=== PATIENT | female | born 1955 | race Caucasian/White ===

== ENCOUNTER 2017-08-06 09:08 | Emergency (ER) | payer BC ==
[2017-08-06] MEDS ORDERED: Ketorolac INJ* 30 MG/ML 1 ML VIAL IM ONE (09:53)
[2017-08-06] MEDS ORDERED: Diazepam TAB(*) 5 MG PO ONE (09:53)
[2017-08-06] MEDS ORDERED: Ondansetron ODT TAB* 4 MG PO ONE (11:30)
[2017-08-06] MEDS ORDERED: Morphine VIAL* 10 MG/ML 1 ML VIAL IM ONE (11:30)
[2017-08-06] MEDS ORDERED: Morphine VIAL* 4 MG/ML VIAL (1 ml vial) IV ONE (11:42)
--- NOTE | 2017-08-06 12:34 | RAD ---
Indication: Right hip pain. Single view the pelvis and 2 views of the right hip demonstrates no fracture. Pelvic ring is intact. Joint spaces well-preserved. The right sacroiliac joint is also intact. IMPRESSION: No fracture of the right hip or pelvis is noted.
--- NOTE | 2017-08-06 12:42 | RAD ---
Indication: Back pain. 5 views of lumbar spine are reviewed. There is posterior fusion of L5 L4 to L5. Straightening of the normal lordosis is noted. Disc spaces are intact. IMPRESSION: Postoperative changes at L4-L5. Straightening of the normal lordosis.
[2017-08-06 12:46] VITALS: BP 143/71
--- NOTE | 2017-08-06 17:58 | ED ---
Back Pain - HPI Summary HPI Summary: Patient is a 61-year-old female who presents emergency department for low back pain times several days. Patient states she has a history of numerous back surgeries remotely. She states she was painting and moving furniture several days ago when she twisted and injured her back. She otherwise denies also. Pain is located to right lower back and radiates into right leg. Notes she has chronic neuropathy to legs but has noted some tingling to her right toe. She denies bowel or bladder incontinence or retention. Pain is worse with movement and ambulation. Nothing makes symptoms better. Patient states she had Soma at home which she took some relief. States she ran out of Soma prescription. Symptoms are mild in severity. - History of Current Complaint Chief Complaint: EDBackInjuryPain Stated Complaint: RT LEG PAIN/HIP PAIN Time Seen by Provider: 08/06/17 09:28 Hx Obtained From: Patient Pain Intensity: 3 Pain Scale Used: 0-10 Numeric - Allergies/Home Medications Allergies/Adverse Reactions: Allergies Allergy/AdvReac Type Severity Reaction Status Date / Time codeine Allergy Anxiety Verified 08/06/17 09:13 Home Medications: Home Medications Alendronate TAB (NF) [Fosamax TAB (NF)] 10 mg PO MONTHLY 08/06/17 [History Confirmed 08/06/17] Aspirin/Caffeine [Bc Fast Pain Relief Arthr 1000-65 mg] 1 pow PO DAILY 08/06/17 [History Confirmed 08/06/17] Gabapentin CAP(*) [Neurontin 300 CAP(*)] 1,200 mg PO TID 08/06/17 [History Confirmed 08/06/17] PMH/Surg Hx/FS Hx/Imm Hx Previously Healthy: Yes Musculoskeletal History: Reports: Hx Osteoporosis - SHOWN IN HIPS NOT LUMBAR - Cancer History Cancer Type, Location and Year: CERVICAL CA - Surgical History Surgery Procedure, Year, and Place: LUMBAR FUSION Infectious Disease History: Unable to Obtain/Confirm Infectious Disease History: Denies: Traveled Outside the [place] in Last 30 Days - Social History Occupation: Retired Lives: With Family Alcohol Use: Occasionally Substance Use Type: Reports: None Smoking Status (MU): Current Every Day Smoker Review of Systems Constitutional: Negative Positive: Other - radicular pain into right leg. Right low back pain. Positive: Paresthesia All Other Systems Reviewed And Are Negative: Yes Physical Exam Triage Information Reviewed: Yes Vital Signs On Initial Exam: Initial Vitals Temp Pulse Resp BP Pulse Ox 98.6 F 85 15 144/81 96 08/06/17 09:10 08/06/17 09:10 08/06/17 09:10 08/06/17 09:10 08/06/17 09:10 Vital Signs Reviewed: Yes Appearance: Positive: Pain Distress - Patient lying in bed, appears in pain but nontoxic. Has been present. Skin: Positive: Warm, Dry Head/Face: Positive: Normal Head/Face Inspection Eyes: Positive: Normal Musculoskeletal: Positive: Other - Pain on palpation over the right SI joint. No midline tenderness. 5 out of 5 strength in bilateral lower extremities flexion and dorsiflexion. Legs are neurovascularly intact. Decreased sensation to right great toe. Neurological: Positive: Normal, CN Intact II-III Psychiatric: Positive: Normal Diagnostics - Vital Signs Vital Signs Temp Pulse Resp BP Pulse Ox 08/06/17 13:05 98.6 F 68 18 143/71 96 08/06/17 12:35 68 143/71 96 08/06/17 12:05 68 153/81 96 08/06/17 12:00 70 96 08/06/17 11:45 22 08/06/17 11:36 69 167/51 98 08/06/17 11:33 65 157/80 98 08/06/17 11:00 70 99 08/06/17 10:05 65 159/68 98 08/06/17 10:02 18 08/06/17 10:00 73 98 08/06/17 09:36 77 100 08/06/17 09:35 74 158/84 100 08/06/17 09:10 98.6 F 85 15 144/81 96 - Laboratory Lab Statement: Any lab studies that have been ordered have been reviewed, and results considered in the medical decision making process. Back Pain Course/Dx - Course Course Of Treatment: Patient presenting with exacerbation of back pain after lifting and twisting. She is afebrile. No evidence of, equina syndrome on exam. Discussed pain control with patient and she states that she gets sick from narcotic medication. I am Toradol and by mouth Valium were ordered. Patient was reassessed after medication and is crying in her bed and writhing in pain stating medication did not work. We'll obtain basic x-rays to rule out fracture. Patient agreed to IM morphine and Zofran. X-rays of right hip and lumbar spine show chronic changes without acute findings, reading per radiology. Reexamination patient is resting more comfortably and is feeling better. Results were discussed. Small rx for hydrocodone and robaxin rx as well as medrol dose pack. 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 Advised warm compress. To call PCP for an apt. To rest and avoid heavy lifting. To return to ER if sxs change or worsn. Pt. understands and agrees with plan. Ambulating without difficulty. - Diagnoses Differential Diagnosis/HQI/PQRI: Positive: Arthritis, Herniated Disc, Strain, Sprain Provider Diagnoses: Sciatica, Muscle spasm Discharge - Sign-Out/Discharge Documenting (check all that apply): Discharge/Admit/Transfer - Discharge Plan Condition: Good Disposition: HOME Prescriptions: Hydrocodone/Acetaminophen [Hydrocodone-Acetamin 5-325 mg] 1 each PO Q6H #12 tablet MDD 4 TABLETS Methocarbamol TAB* [Robaxin 500 MG TAB*] 500 mg PO QID PRN #12 tab PRN Reason: Spasms - Back methylPREDNISolone [Medrol Dosepak 4 MG*] 0 mg PO .SEE FELICIANO INSTRUCTION #1 tab Patient Education Materials: Sciatica (ED), Muscle Spasm (ED) Referrals: Raul Gooden DO [Primary Care Provider] - Additional Instructions: Call PCP for an appointment Take medications as directed Do not take robaxin and soma together Apply warm compresses to back Avoid heavy lifting Return to ER if symptoms change or worsen - Billing Disposition and Condition Condition: GOOD Disposition: HOME
== END 2017-08-06 13:05 | disposition home or self-care (01) ==
LOC: ED 09:08
DX: M54.30 Sciatica, unspecified side (principal); M62.830 Muscle spasm of back; F17.200 Nicotine dependence, unspecified, uncomplicated; Z98.1 Arthrodesis status; Z88.5 Allergy status to narcotic agent
CPT/HCPCS: 72110; 96372; 96374; 99282; A9270-GY; J1885; J2270

== ENCOUNTER 2018-07-26 16:27 | Inpatient (IN) | payer BC ==
[2018-07-26] MEDS ORDERED: HYDROcodone/ACETAMIN 5-325 MG* 1 TAB PO ONE (17:33)
--- NOTE | 2018-07-26 17:39 | ED ---
Adult Trauma - HPI Summary HPI Summary: The pt is a 62 y/o F presenting to the ED with a chief complaint of a fall. She tripped over her dog about two hours ago because she thought he was going to try and go after the mailman. She notes she fell with her R elbow underneath her. Immediately after, she took a hot bath with Epsom salt, then took a nap, and woke up with excruciating pain. She has hx of osteoporosis as well as back issues including dual spinal fusion and compression fractures. She took Aleve to try and help the pain but it did not touch it. She denies fever. - History of Current Complaint Chief Complaint: EDHipPelvisInjury Stated Complaint: FALL/RT SIDE PAIN PER PT Time Seen by Provider: 07/26/18 17:26 Hx Obtained From: Patient Mechanism of Injury: Fall Mechanism of Injury (MVC): VS Animal Onset/Duration: Started Hours Ago, Still Present Onset of Pain: Immediate Onset Severity: Moderate Current Severity: Severe Pain Intensity: 10 Pain Scale Used: 0-10 Numeric Location: Abdomen/Pelvis, Extremities - R elbow Aggravating Factor(s): Movement, Palpation, Weight Bearing, Ambulation Alleviating Factor(s): Nothing - Allergy/Home Medications Allergies/Adverse Reactions: Allergies Allergy/AdvReac Type Severity Reaction Status Date / Time codeine Allergy Anxiety Verified 08/06/17 09:13 tramadol Allergy Vomiting Verified 07/26/18 16:33 Home Medications: Home Medications Albuterol HFA INHALER* [Ventolin HFA Inhaler*] 2 puff INH Q6H PRN 07/26/18 [ History Confirmed 07/26/18] Carisoprodol TAB* [Soma TAB*] 350 mg PO BID PRN 07/26/18 [History Confirmed ] Cholecalciferol (Vitamin D3) [Vitamin D3] 1,000 unit PO DAILY 07/26/18 [History Confirmed 07/26/18] PMH/Surg Hx/FS Hx/Imm Hx Previously Healthy: Yes Endocrine/Hematology History: Denies: Hx Diabetes Musculoskeletal History: Reports: Hx Osteoporosis - SHOWN IN HIPS NOT LUMBAR - Cancer History Cancer Type, Location and Year: CERVICAL CA - Surgical History Surgery Procedure, Year, and Place: LUMBAR FUSION Infectious Disease History: No Infectious Disease History: Denies: Traveled Outside the [place] in Last 30 Days - Family History Known Family History: Negative: Diabetes - Social History Alcohol Use: None Hx Substance Use: No Substance Use Type: Reports: None Hx Tobacco Use: Yes Smoking Status (MU): Current Every Day Smoker Review of Systems Negative: Fever Positive: Arthralgia, Myalgia All Other Systems Reviewed And Are Negative: Yes Physical Exam - Summary Physical Exam Summary: Appearance: The patient is well-nourished in no acute distress and in no acute pain. Skin: The skin is warm and dry and skin color reflects adequate perfusion. HEENT: The head is normocephalic and atraumatic. The pupils are equal and reactive. The conjunctivae are clear and without drainage. Nares are patent and without drainage. Mouth reveals moist mucous membranes and the throat is without erythema and exudate. The external ears are intact. The ear canals are patent and without drainage. The tympanic membranes are intact. Neck: The neck is supple with full range of motion and non-tender. There are no carotid bruits. There is no neck vein distension. Respiratory: Chest is non-tender. Lungs are clear to auscultation and breath sounds are symmetrical and equal. Cardiovascular: Heart is regular rate and rhythm. There is no murmur or rub auscultated. There is no peripheral edema and pulses are symmetrical and equal. Abdomen: The abdomen is soft and non-tender. There are normal bowel sounds heard in all four quadrants and there is no organomegaly palpated. Musculoskeletal: There is no back tenderness noted. Extremities are non-tender with full range of motion. There is good capillary refill. There is no peripheral edema or calf tenderness elicited. Her R hip is tender to palpation and tender when rotated internally and externally as well as flexed or extended. Neurological: Patient is alert and oriented to person, place and time. The patient has symmetrical motor strength in all four extremities. Cranial nerves are grossly intact. Deep tendon reflexes are symmetrical and equal in all four extremities. Psychiatric: The patient has an appropriate affect and does not exhibit any anxiety or depression. Triage Information Reviewed: Yes Vital Signs On Initial Exam: Initial Vitals Temp Pulse Resp BP Pulse Ox 99.6 F 89 16 174/105 98 07/26/18 16:30 07/26/18 16:30 07/26/18 16:30 07/26/18 16:30 07/26/18 16:30 Vital Signs Reviewed: Yes Diagnostics - Vital Signs Vital Signs Temp Pulse Resp BP Pulse Ox 07/26/18 16:30 99.6 F 89 16 174/105 98 - Laboratory Result Diagrams: 07/26/18 22:55 07/26/18 22:55 Lab Statement: Any lab studies that have been ordered have been reviewed, and results considered in the medical decision making process. - Radiology Femur XR Radiology Interpretation Completed By: Radiologist Summary of Radiographic Findings: Mild degenerative changes as described above without radiographically apparent fracture or dislocation. ED physician has reviewed this report. Hip/Pelvis XR Radiology Interpretation Completed By: Radiologist Summary of Radiographic Findings: Mild degenerative changes as described above without radiographically apparent fracture or dislocation. ED physician has reviewed this report. Adult Trauma Course/Dx - Course Course Of Treatment: Ms. Loera tripped over her dog and fell hitting her right hip. Since that time she's been unable to bear weight secondary to the severe pain. She was nontoxic on arrival with stable vital signs and tenderness to range of motion of her right hip with palpation. She was given a by mouth [place] while in x-ray was obtained. X-ray was negative but the medication didn't really help therefore she was given a Percocet and a CT scan was obtained. I'm waiting for the official read of the CT scan at this point although it looks negative to my read. - Diagnoses Provider Diagnoses: Right femoral fracture, Fracture, intertrochanteric, right femur Discharge - Sign-Out/Discharge Documenting (check all that apply): Patient Departure, Sign-Out Patient Signing out patient TO: Marcos Del Rosario - Discharge Plan Condition: Stable Disposition: ADMITTED TO [facility] - Billing Disposition and Condition Condition: STABLE Disposition: Admitted to [facility] - Attestation Statements Document Initiated by Glene: Yes Documenting Scribe: Jordyn Chopra Provider For Whom Juancho is Documenting (Include Credential): Marcos Sherman MD. Scribe Attestation: Jordyn Xavier, glened for Marcos Sherman MD. on 07/27/18 at 1018. Scribe Documentation Reviewed: Yes Provider Attestation: The documentation as recorded by the scribe, Jordyn Chopra accurately reflects the service I personally performed and the decisions made by me, Marcos Sherman MD. Status of Scribe Document: Viewed
[2018-07-26] MEDS ORDERED: oxyCODONE/Acetamin 5/325 MG* TAB PO ONE (18:55)
--- NOTE | 2018-07-26 20:00 | ED ---
Progress - Progress Note Progress Note: The patient is a sign-out from Dr. Marcos Sherman MD, to Dr. Marcos Del Rosario MD , at change of shift at [address] Pel and disposition. CT reveals a small joint effusion on the right hip s/p L5/S1 fusion. Hip MRI reveals right femoral neck and intertrochanteric fracture. EKG reveals sinus bradycardia at 58BPM. I consulted with Dr. Carrillo, orthopedics, at 22:50 who recommends that the patient be admitted. I spoke with Dr. Pelletier, hospitalist, who accepts the patient for admission at 22:55. She is diagnosed with right femoral neck and intertrochanteric fracture. She agrees with and understands the need for admission at this time. - Results/Orders Results/Orders: CT Pelvis: 1. No acute fracture identified. 2. Small joint effusion at right hip. 3. Status post L5/S1 fusion. ED physician has reviewed this report. MRI Hip: Acute traumatic occult right femoral neck and intertrochanteric fracture. ED physician has reviewed this report. EK:18, Sinus bradycardia at 58 BPM, P waves, QRS complex, and T waves are within normal limits, T waves and intervals are normal, no ischemic changes Re-Evaluation - Re-Evaluation First Eval Re-Evaluation Time: 19:55 Change: Unchanged Comment: I spoke with the patient concerning CT Pelvis results. Course/Dx - Diagnoses Provider Diagnoses: Right femoral fracture, Fracture, intertrochanteric, right femur - Provider Notifications Discussed Care Of Patient With: Jay Carrillo - orthopedics Time Discussed With Above Provider: 22:50 Instructed by Provider To: Admit As Inpatient - Dr. Carrillo suggests that the patient be admitted. I spoke with Dr. Pelletier, hospitalist, who accepts the patient for admission at 22:00. Admit/Transition Orders Completed By ED Provider: Yes Discharge - Sign-Out/Discharge Documenting (check all that apply): Patient Departure - Patient will be admitted to [facility] for further care by Dr. Pelletier., Receiving Sign-Out Receiving patient FROM: Marcos Sherman - Patient is a sign-out at shift change at [address] Pel and disposition. Patient Received Moderate/Deep Sedation with Procedure: No - Discharge Plan Condition: Stable Disposition: ADMITTED TO [facility] - Billing Disposition and Condition Condition: STABLE Disposition: Admitted to [facility] - Attestation Statements Document Initiated by Juancho: Yes Documenting Scribe: Amarilis Wood Provider For Whom Juancho is Documenting (Include Credential): Dr. Marcos Del Rosario MD [place] Attestation: I, weston Adlered for Dr. Marcos Del Rosario MD on 07/27/18 at 0651. Scribe Documentation Reviewed: Yes Provider Attestation: The documentation as recorded by the Amarilis gaming accurately reflects the service I personally performed and the decisions made by me, Dr. Marcos Del Rosario MD Status of Scribe Document: Viewed
[2018-07-26 23:04] LABS: ABS Basophils 0 10^3/ul (0-0.2); ABS Eosinophils 0.1 10^3/ul (0-0.6); ABS Lymphocytes 2.5 10^3/ul (1.0-4.8); ABS Monocytes 0.7 10^3/ul (0-0.8); ABS Neutrophils 4.2 10^3/ul (1.5-7.7); ABS Nucleated RBC 0 10^3/ul; Eosinophil % 1.9 %; Hematocrit 34 % (33-41); Hemoglobin 11.4 g/dL (12.0-16.0); Lymphocyte % 32.9 %; Mean Corpuscular HGB Conc 33 g/dL (31-36); Mean Corpuscular Hemoglobin 32 pg (27-31); Mean Corpuscular Volume 94 fL (80-97); Mean Platelet Volume 7.3 fL (7.4-10.4); Nucleated Red Blood Cells % 0; Platelet Count 281 10^3/uL (150-450); Red Blood Count 3.61 10^6 /uL (3.70-4.87); Red Cell Distribution Width 14 % (10.5-15); White Blood Count 7.6 10^3/uL (3.5-10.8)
[2018-07-26] MEDS ORDERED: Albuterol 2.5 MG/3 ML NEB.SOL* (0.083%) INH PRN (23:21)
[2018-07-26] MEDS ORDERED: Al Hydrox/Mg Hydrox/Simet LIQ* 30 ML UDC PO PRN (23:21)
[2018-07-26] MEDS ORDERED: Acetaminophen TAB* 325 MG PO PRN (23:21)
[2018-07-26 23:22] LABS: Albumin 3.8 g/dL (3.2-5.2); Albumin/Globulin Ratio 1.5 (1-3); BUN/Creatinine Ratio 13.2 (8-20); Calcium 8.7 mg/dL (8.6-10.3); EGFR African American 142.4 (>60); EGFR Non-African American 117.7 (>60); Globulin 2.5 g/dL (2-4); Potassium 3.9 mmol/L (3.5-5.0); Total Bilirubin 0.2 mg/dL (0.2-1.0); Total Protein 6.3 g/dL (6.4-8.9)
[2018-07-26] MEDS ORDERED: Albuterol HFA INHALER* 8 gm MDI INH PRN (23:24)
[2018-07-26] MEDS ORDERED: Enoxaparin(*) 40 MG/0.4 ML SYR SUBCUT SCH (23:45)
[2018-07-27] MEDS: Morphine INJ* 2 MG/ML 1 ML SYRINGE (TWO MG - NEW SYRINGE VERSION) IV PRN ×3 (00:54→09:00)
--- NOTE | 2018-07-27 00:55 | HP ---
CC: Dr. Raul Gooden * HISTORY AND PHYSICAL: DATE OF ADMISSION: 07/26/18 TIME OF ADMISSION: 11:30 p.m. CHIEF COMPLAINT: Right hip pain. HISTORY OF PRESENT ILLNESS: This is a 62-year-old female with history of osteoporosis who presents to the emergency department after a fall with right hip pain. She was on her back deck this morning and saw her dog about to run, so she grabbed him and fell on top of him and then she fell onto her right side and hit her elbow, head, and right hip. She was able to stand up and felt okay. She fixed lunch for her and her and then took a nap and when she woke up from her nap approximately 4 hours after the fall, she had severe right hip pain and could not bear weight on it, so she came to the emergency department. She did not lose consciousness and she has no other complaints besides right hip pain. She localizes it to the anterior right thigh with any movement. She has no numbness, tingling, headache, chest pain, or any other symptoms. Regarding her cardiac abilities, she is active in her yard and has recently been raking and working in the garden. She is able to walk up a full flight of stairs without stopping and can carry her groceries up a flight of stairs. She has no limitations in walking and never gets chest pain when she exerts herself. She gets short of breath occasionally when her walks her [address] twice; however, if she takes her albuterol inhaler, she does not get short of breath. She has never had a stress test or echo that she knows of. She has never had syncope. PAST MEDICAL HISTORY: Osteoporosis with compression fractures, COPD, history of histoplasmosis that was treated, neuropathy from a back surgery, cervical cancer in 1989. PAST SURGICAL HISTORY: Lumbar and sacral fusion, hysterectomy, appendectomy, C - section and "bones removed from toes." ALLERGIES: CODEINE and TRAMADOL which both cause nausea. FAMILY HISTORY: Her brother has heart failure and her mom has COPD. SOCIAL HISTORY: She smoked half a pack a day for 40 years. Her emergency contact is her , Phu. She does not drink any alcohol. PHYSICAL EXAMINATION GENERAL: Alert, thin, well-appearing female who appears her stated age. VITAL SIGNS: Temperature 97.1, heart rate 63, respiratory rate 16, pulse ox 95 % on room air, blood pressure 154/80. HEENT: Pupils are 3 mm bilaterally and reactive to light. No nystagmus. Oral mucosa is moist. She has no hematoma, abrasions, or lacerations on her head. NECK: No JVP. No adenopathy. LUNGS: Her lungs are clear bilaterally. CHEST: She is in a regular and rhythm with no murmurs. Her PMI is nondisplaced. ABDOMEN: Soft, nontender, and nondistended with no guarding or rebound. Her liver is not palpable, her spleen is not palpable, and she has no CVA tenderness. EXTREMITIES: She has pain in the right thigh with any motion of the right hip. Her DP and PT pulses are 2+ bilaterally. Her sensation is intact distally and she has no edema, rashes, ulcers, abrasions, or lacerations. NEUROLOGIC: She is oriented x3. Her cognition is appropriate. DIAGNOSTIC STUDIES/LAB DATA: Sodium 140, potassium 3.9, chloride 107, bicarb 28 , BUN 7, creatinine 0.53. Glucose 88. White blood cells 7.6, hemoglobin 11.4, platelets 281. A hip and pelvis x-ray showed mild degenerative changes without radiographically apparent fracture or dislocation; a pelvis CT showed no acute fracture, small joint effusion at right hip and status post L5-S1 fusion; and a hip MRI showed acute traumatic occult right femoral neck and intertrochanteric fractures. An EKG shows normal sinus rhythm, normal axis, normal intervals, no chamber hypertrophy, no Q wave and no ST or T wave changes. ASSESSMENT AND PLAN: This is a 62-year-old female with history of osteoporosis who presents to the emergency department with right hip pain after a mechanical fall and was found to have a right hip fracture. 1. Right hip fracture. Likely related to a fall in the setting of osteoporosis. The case was discussed between the emergency department and Orthopedic Surgery, Dr. Carrillo. I will manage her pain with morphine. Regarding her risk stratification for major adverse cardiac events, her RCRI gives her 0 points. She has good functional capacity with 4 METs and no evidence of acute coronary syndrome. She should proceed to the operating room should it be deemed warranted by Orthopedic Surgery without further cardiac workup. 2. Osteoporosis. Likely related to tobacco use. She has no other known endocrine reason for osteoporosis. She should be continued on Fosamax. 3. Chronic obstructive pulmonary disease. She has no home O2 requirements and does not appear to be in exacerbation at this time. Continue p.r.n. Ventolin. 4. Chronic pain from a prior back surgery. Continue gabapentin and Soma p.r.n. 5. DVT prophylaxis. Lovenox subcutaneously. 6. Diet. Unrestricted and n.p.o. after midnight. [id number]/[facility] #: [id number] ANNE
[2018-07-27 06:01] LABS: Activated Partial Thrombo Time 30.1 seconds (26.0-36.3); INR 0.91 (0.77-1.02)
[2018-07-27] MEDS: Gabapentin CAP(*) 400 MG PO SCH ×2 (10:22→21:12)
[2018-07-27] MEDS ORDERED: Ondansetron INJ* 2 MG/ML VIAL ONE (11:09)
[2018-07-27 11:16] LABS: Urine Appearance Cloudy; Urine Bilirubin Negative (Negative); Urine Blood Negative (Negative); Urine Color Yellow; Urine Glucose Negative (Negative); Urine Ketones Negative (Negative); Urine Nitrite Negative (Negative); Urine Protein Negative (Negative); Urine Specific Gravity 1.016 (1.010-1.030); Urine Urobilinogen Negative (Negative)
[2018-07-27] MEDS ORDERED: ceFAZolin 2 GM in NS PREMIX(*) 2 GM/100 ML BAG IVPB ONE (11:41)
[2018-07-27] MEDS ORDERED: Scopolamine 1.5 mg* PATCH ONE (12:25)
[2018-07-27] MEDS ORDERED: Bupivacaine 0.5%* 50 ML VIAL ONE (12:38)
[2018-07-27] MEDS ORDERED: Bupivacaine 0.25% W/EPI* 10 ML SDV ONE (13:06)
--- NOTE | 2018-07-27 13:29 | PN ---
Subjective Date of Service: 07/27/18 Interval History: Ms. Loera reports feeling quite well after surgery and being very appreciative of the care she has received in the hospital. She denies pain at this point but she is in the immediate post-operative period. She denies chest pain, SOB, nausea, or abdominal pain. Objective Active Medications: Acetaminophen (Tylenol Tab*) 650 mg PO Q4H PRN Al Hydrox/Mg Hydrox/Simethicone (Maalox Plus*) 30 ml PO Q6H PRN Albuterol (Ventolin 2.5 Mg/3 Ml Neb.Jacki*) 2.5 mg INH [id number] AWAKE PRN Albuterol (Ventolin Hfa Inhaler*) 2 puff INH Q6H PRN Carisoprodol (Soma Tab*) 350 mg PO BID PRN Enoxaparin Sodium (Lovenox(*)) 40 mg SUBCUT Q24H LAURA Gabapentin (Neurontin Cap(*)) 1,200 mg PO BID LAURA Morphine Sulfate (Morphine Inj (Syringe))*) 2 mg IV Q4H PRN Vital Signs: Temp Pulse Resp BP Pulse Ox 98.5 F 57 16 134/68 94 07/27/18 07:13 07/27/18 07:13 07/27/18 10:22 07/27/18 07:13 07/27/18 07:13 Oxygen Devices in Use Now: None Appearance: Female lying in bed in NAD Eyes: No Scleral Icterus Ears/Nose/Mouth/Throat: Mucous Membranes Moist Neck: Trachea Midline Respiratory: Symmetrical Chest Expansion and Respiratory Effort, Clear to Auscultation Cardiovascular: NL Sounds; No Murmurs; No JVD, No Edema Abdominal: NL Sounds; No Tenderness; No Distention Extremities: No Edema Neurological: Alert and Oriented x 3, NL Muscle Strength and Tone Nutrition: Taking PO's Result Diagrams: 07/26/18 22:55 07/26/18 22:55 Assess/Plan/Problems-Billing Assessment: Ms. Loera is a 62 yo F with a PMH of osteoporosis and COPD who was admitted on 07/26/18 with a right hip fracture after a mechanical fall. - Patient Problems (1) Closed right hip fracture Comment: - Patient to OR today, management per ortho - PT/OT - Monitor H/H - Pain med prn with bowel regimen (2) Osteoporosis Comment: - Recommend follow up with endocrinology (Law or Kenny) or sports medicine ( Jesus) for management of osteoporosis. (3) COPD (chronic obstructive pulmonary disease) Comment: - No evidence of acute exacerbation - Continue albuterol prn and good pulmonary mobilization (4) DVT prophylaxis (5) Full code status Comment: Status and Disposition: Inpatient with disposition per ortho. Anticipate need for rehabilitation.
[2018-07-27] MEDS ORDERED: Ketorolac INJ* 30 MG/ML 1 ML VIAL IV PRN (13:51)
[2018-07-27] MEDS ORDERED: Naloxone* 0.4 MG/ML 1 ML VIAL IV PRN (13:51)
[2018-07-27] MEDS ORDERED: DiMENhydriNATE IV* 50 MG/ML VIAL IV PUSH PRN (13:51)
[2018-07-27] MEDS ORDERED: DiMENhydriNATE IV* 50 MG/ML VIAL ONE (13:53)
[2018-07-27] MEDS ORDERED: fentaNYL* 50 MCG/ML 2 ML VIAL (100 MCG VIAL) ONE (13:53)
[2018-07-27] MEDS ORDERED: Ketorolac INJ* 30 MG/ML 1 ML VIAL ONE (13:53)
[2018-07-27] MEDS: fentaNYL* 50 MCG/ML 2 ML VIAL (100 MCG VIAL) IV PRN ×4 (14:05→14:47)
[2018-07-27] MEDS ORDERED: HYDROcodone/ACETAMIN 5-325 MG* 1 TAB PO PRN (15:12)
[2018-07-27] MEDS ORDERED: Ondansetron INJ* 2 MG/ML VIAL IV PRN (15:34)
[2018-07-27] MEDS ORDERED: Morphine INJ* 2 MG/ML 1 ML SYRINGE (TWO MG - NEW SYRINGE VERSION) IV PRN (16:00)
[2018-07-27] MEDS ORDERED: Warfarin TAB(*) 6 MG PO SCH (17:00)
[2018-07-27] MEDS: HYDROcodone/ACETAMIN 5-325 MG* 1 TAB PO PRN ×2 (17:08→21:20)
[2018-07-27] MEDS: ceFAZolin 1 GM* X 3 DOSES POST-OP Q8H (AddVan) IVPB SCH ×2 (21:33)
[2018-07-28] MEDS ORDERED: Acetaminophen TAB* 325 MG PO PRN (03:00)
[2018-07-28 05:08] LABS: Hematocrit 35 % (33-41); Hemoglobin 11.9 g/dL (12.0-16.0); Mean Corpuscular HGB Conc 34 g/dL (31-36); Mean Corpuscular Hemoglobin 32 pg (27-31); Mean Corpuscular Volume 94 fL (80-97); Platelet Count 296 10^3/uL (150-450); Red Blood Count 3.77 10^6 /uL (3.70-4.87); Red Cell Distribution Width 14 % (10.5-15); White Blood Count 10.6 10^3/uL (3.5-10.8)
[2018-07-28 05:14] LABS: INR 0.98 (0.77-1.02)
[2018-07-28 05:29] LABS: BUN/Creatinine Ratio 16.9 (8-20); Calcium 9.2 mg/dL (8.6-10.3); EGFR African American 125.8 (>60)
[2018-07-28] MEDS: HYDROcodone/ACETAMIN 5-325 MG* 1 TAB PO PRN ×5 (05:47→22:18)
[2018-07-28] MEDS: ceFAZolin 1 GM* X 3 DOSES POST-OP Q8H (AddVan) IVPB SCH ×4 (05:50→14:30)
--- NOTE | 2018-07-28 06:20 | OP ---
DATE OF OPERATION: 07/27/18 - ROOM #350 DATE OF : 59 SURGEON: Jay Carrillo MD PRE-OP DIAGNOSIS: Nondisplaced right femoral neck fracture. POST-OP DIAGNOSIS: Nondisplaced right femoral neck fracture. OPERATIVE PROCEDURE: Percutaneous pinning right hip fracture. ANESTHESIA: General. ESTIMATED BLOOD LOSS: Negligible. COMPLICATIONS: None. SUMMARY: Ms. Loera is a 62-year-old female who had fallen yesterday when trying to restrain her dog. Initially, she thought she was all right and took a nap, but when she awoke she was unable to weight bear on the leg. She was brought to the emergency room here at [facility] and x-rays and a CAT scan were negative. It took an MRI to actually visualize the fracture of her right femoral back. I discussed with her that a percutaneous pinning should work well to hold the bone in place while this heals. Risks of surgery such as infection, scar formation, stiffness, DVT, pulmonary embolisms, and AVN of the femoral head requiring further treatment were discussed and she had wished to proceed. DESCRIPTION OF PROCEDURE: The patient was brought to the OR and anesthesia was established. She was then positioned on the fracture table so that C-arm could be brought in. I had good AP and lateral views of the right hip. Right hip area was prepped and then draped. Skin over the incisional area was infiltrated using 0.25% Marcaine with epinephrine, a total of 20 cc would be used in and about the incision as I also went all the way down the periosteum as I would like to get my direction for the guidewires that way as well. Skin was incised using a #10 blade and a straight snap was then brought right down against the lateral cortex and spread, so I would have track to place the wires. Wire was positioned and adjusted until I liked its positioning. This was then run up and through the cortex into the femoral head and checked in the AP and lateral planes. Alignment appeared excellent. Cannulated drill was run over the wire and a 100 mm screw was called for. Long threads were used for the screws. The parallel guidewire was then placed and this was used to place 2 additional screws. Inverted triangle positioning was used for the screws and final pictures were taken and saved. Wound was irrigated using a syringe and then one subcutaneous Vicryl stitch was placed. Skin was closed using Piyush. Sterile dressing was applied in the OR. The patient was awakened in the OR and was stable and transferred to the recovery room. [id number]/[facility] #: [id number] ANNE
--- NOTE | 2018-07-28 07:47 | PN ---
Subjective Date of Service: 07/28/18 Interval History: Ms. Loera reports feeling quite well today. She denies hip pain at rest. She further denies chest pain, SOB, nausea, or abdominal pain. She is excited that she is quiting smoking - currently on day 4. Objective Active Medications: Acetaminophen (Tylenol Tab*) 650 mg PO Q6H PRN Hydrocodone Bitart/Acetaminophen ([place] 5-325 Tab*) 1 tab PO Q3H PRN Hydrocodone Bitart/Acetaminophen ([place] 5-325 Tab*) 2 tab PO Q4H PRN Al Hydrox/Mg Hydrox/Simethicone (Maalox Plus*) 30 ml PO Q6H PRN Albuterol (Ventolin 2.5 Mg/3 Ml Neb.Jacki*) 2.5 mg INH [id number] AWAKE PRN Albuterol (Ventolin Hfa Inhaler*) 2 puff INH Q6H PRN Carisoprodol (Soma Tab*) 350 mg PO BID PRN Gabapentin (Neurontin Cap(*)) 1,200 mg PO BID LAURA Heparin Sodium (Porcine) (Heparin Vial(*)) 5,000 units SUBCUT BID LAURA Cefazolin Sodium 1 gm/ Sodium (Chloride) 50 mls @ 200 mls/hr IVPB Q8H LAURA Morphine Sulfate (Morphine Inj (Syringe))*) 2 mg IV Q2H PRN Ondansetron HCl (Zofran Inj*) 4 mg IV Q6H PRN Pharmacy Profile Note (Coumadin Daily Reminder*) 1 note FOLLOW UP 1700 LAURA Warfarin Sodium (Coumadin Tab(*)) 6 mg PO 1700 LAURA Vital Signs: Temp Pulse Resp BP Pulse Ox 98.8 F 62 16 128/66 97 07/28/18 04:20 07/28/18 04:20 07/28/18 05:47 07/28/18 04:20 07/28/18 04:20 Oxygen Devices in Use Now: None Appearance: Female sitting up in chair in NAD Eyes: No Scleral Icterus Ears/Nose/Mouth/Throat: Mucous Membranes Moist Neck: Trachea Midline Respiratory: Symmetrical Chest Expansion and Respiratory Effort, Clear to Auscultation Cardiovascular: NL Sounds; No Murmurs; No JVD, No Edema Abdominal: NL Sounds; No Tenderness; No Distention Extremities: No Edema Skin: No Rash or Ulcers Neurological: Alert and Oriented x 3, NL Muscle Strength and Tone Nutrition: Taking PO's Result Diagrams: 07/28/18 04:47 07/28/18 04:47 Assess/Plan/Problems-Billing Assessment: Ms. Loera is a 62 yo F with a PMH of osteoporosis and COPD who was admitted on 07/26/18 with a right hip fracture after a mechanical fall. - Patient Problems (1) Closed right hip fracture Comment: - POD # 1, management per ortho - PT/OT - H/H stable - Pain med prn with bowel regimen (2) Osteoporosis Comment: - Also has previous hx of compression fractures with dexa x 2 showing osteoporosis, on fosamax - Recommend follow up with endocrinology ( or Kenny) or sports medicine ( Jesus) for management of osteoporosis. (3) Nicotine abuse Comment: - > 15 minutes spent in smoking cessation counseling (4) COPD (chronic obstructive pulmonary disease) Comment: - No evidence of acute exacerbation - Continue albuterol prn and good pulmonary mobilization (5) DVT prophylaxis Comment: - Heparin SQ per ortho (6) Full code status Comment: Status and Disposition: Inpatient. Anticipate need for rehabilitation but may be able to return home with PT.
--- NOTE | 2018-07-28 08:41 | PN ---
Progress Note - Progress Note Date of Service: 07/28/18 SOAP: Subjective: 62 yo female, fell om her back porch sustaining non-displaced right femoral neck fx on 07/26. Underwent a perc pinning 07/27. Did well yesterday and this morning already OOB and sitting in the chair. Reports needed no pain meds o/n and while sore at the incision site, doing much better today and very pleased on how surgery went. Objective: Dressing c/d/i. Moving right leg spontaneously. Easy ankle motion. Labs: H/H: Assessment: S/P perc pinning right hip Plan: Cont OOB/PT, DVT prophalaxis, care. Doing quite well, will continue with arrangements for safe home d/c.
[2018-07-28] MEDS: Heparin VIAL(*) 5000 UNITS/ML VIAL (FIVE THOUSAND) SUBCUT SCH ×2 (09:15→20:37)
[2018-07-28] MEDS: Gabapentin CAP(*) 400 MG PO SCH ×2 (09:15→20:36)
--- NOTE | 2018-07-28 10:34 | CONS ---
ORTHOPEDIC CONSULT: DATE OF CONSULT: 07/27/18 CHIEF COMPLAINT: Right hip. HISTORY OF PRESENT ILLNESS: Ms. Loera is a 62-year-old female with a known history of osteoporosis. She had sustained several compression fractures of her vertebral spine. Yesterday evening, she had fallen when trying to restrain her dog when the dog was going to bolt. She landed hard on the right thigh, but was able to get up, take a nap, but when she woke up, she was unable to weight bear. She did come to the emergency room here at [facility] and x-rays were taken, which were negative as was a CAT scan, which was negative. She had significant pain with weightbearing and the ER attending was still suspicious for a fracture, so he ordered an MRI, which did show a nondisplaced femoral neck fracture. She has been admitted overnight. She has never had troubles with the right hip before, but does report a history of troubles with her left hip. Several weeks ago, she underwent a CAT scan looking for the cause of pain in her left groin and is set up for a CT with contrast this upcoming Sunday as concerned about that. PAST MEDICAL HISTORY: Osteoporosis, chronic low back pain, COPD. PAST SURGICAL HISTORY: Lumbar fusion. MEDICATIONS: On admission: 1. Albuterol inhaler 2 puffs every 6 hours as needed. 2. Soma 350 mg p.o. b.i.d. p.r.n. 3. Vitamin D 1000 units daily. 4. Neurontin 1200 mg p.o. b.i.d. MEDICATION ALLERGIES: CODEINE, which causes anxiety and TRAMADOL, which causes vomiting. SOCIAL HISTORY: She has a negative EtOH history, but does have a significant smoking history. PHYSICAL EXAM: General: Mature lean female, in no apparent distress, lying on the hospital bed. She is oriented x3. She has appropriate mood and affect. Right hip: Palpation finds some very specific tenderness right over the greater trochanter. She spontaneously moves the leg as she was lying on her left side. When I came in, was able to roll onto her back and moved the leg on her own. She can easily externally and internally rotate and is clearly much more comfortable with the hip flexed to about 45 degrees. She can easily plantar and dorsiflex the ankle and has good sensation over the dorsum of the foot. Left hip: She was interested in having me check the left hip. She does have a very specific nodule anteriorly right along the hip. She easily internally and externally rotates on the left hip as well as flexes the hip up, trying to flatten out on that left hip recreates some of her pain as well. DIAGNOSTIC STUDIES: X-rays, CAT scan, and MRI are available for review. It could be seen even knowing where to look from the MRI that the fracture is not visible on the CAT scan and plain x-rays. MRI shows very specific high signal right along the femoral neck in a vertical pattern. ASSESSMENT: Nondisplaced femoral neck fracture. PLAN: I discussed with Ms. Loera that she has broken hip, but with the way she has broken, I believe, a set of cannulated screws should work nicely to hold this in place. I discussed with her that I had added her onto the OR schedule already and then we should be able to go later this morning. Risks of surgery such as infection, scar formation, stiffness, DVT, pulmonary embolism, nonhealing of the fractures, AVM of the femoral head were some of the risks discussed. She would like to proceed. We will hopefully get her going earlier today so that she will be able to get out of bed later this afternoon so that she will not be stuck in bed for an extended period of time. [id number]/[facility] #: [id number] ANNE
[2018-07-28] MEDS: Carisoprodol TAB* 350 MG PO PRN (11:28)
[2018-07-28] MEDS: Morphine 10 MG/ML VIAL (1 ml) IV PRN ×3 (12:24→20:37)
[2018-07-28] MEDS ORDERED: HYDROmorphone INJ1* 1 MG/ML SYRINGE IV SLOW PU ONE (13:00)
[2018-07-28] MEDS ORDERED: Warfarin TAB(*) 6 MG PO ONE (17:00)
[2018-07-29] MEDS: Carisoprodol TAB* 350 MG PO PRN ×2 (00:06→11:11)
[2018-07-29] MEDS: HYDROcodone/ACETAMIN 5-325 MG* 1 TAB PO PRN ×3 (03:34→11:12)
[2018-07-29 06:31] LABS: Hematocrit 33 % (33-41); Mean Corpuscular HGB Conc 33 g/dL (31-36); Mean Corpuscular Hemoglobin 31 pg (27-31); Mean Corpuscular Volume 95 fL (80-97); Mean Platelet Volume 7.7 fL (7.4-10.4); Platelet Count 238 10^3/uL (150-450); Red Blood Count 3.53 10^6 /uL (3.70-4.87); Red Cell Distribution Width 14 % (10.5-15); White Blood Count 6.8 10^3/uL (3.5-10.8)
[2018-07-29 06:39] LABS: INR 1.42 (0.77-1.02)
[2018-07-29 06:55] LABS: BUN/Creatinine Ratio 15.8 (8-20); Calcium 8.9 mg/dL (8.6-10.3); EGFR African American 130.9 (>60); EGFR Non-African American 108.2 (>60); Potassium 3.8 mmol/L (3.5-5.0)
[2018-07-29] MEDS: Heparin VIAL(*) 5000 UNITS/ML VIAL (FIVE THOUSAND) SUBCUT SCH (08:15)
[2018-07-29] MEDS: Gabapentin CAP(*) 400 MG PO SCH (08:15)
[2018-07-29 13:12] VITALS: BP 154/84
--- NOTE | 2018-07-29 17:22 | PN ---
Progress Note - Progress Note Date of Service: 07/29/18 SOAP: Subjective: []Pt seen at bedside. She feels very well and desires DC home. Denies CP, SOB, dizziness, nausea Objective: []General: Appears well, NAD RLE: Right hip dressing changed, incision CDI, thigh soft, D2+, DF/PF intact Calves supple and nontender without erythema, edema or palpable cords Assessment: []POD 2 sp Perc pinning R hip Plan: []WBAT PT/OT coumadin for DVT prophylaxis x 30 days post op. Sunday and INR draws values sent to [facility] for dosing. Vital Signs Temp 97.6 F 07/29/18 13:14 Pulse 56 07/29/18 13:14 Resp 17 07/29/18 13:14 BP 154/84 07/29/18 13:14 Pulse Ox 100 07/29/18 11:19 Intake & Output 07/28/18 07/29/18 07/29/18 18:59 06:59 18:59 Intake Total 535 1700 530 Output Total 2220 1200 400 Balance -1685 500 130 Intake: IVPB 55 ABX - CEFAZOLIN 55 Oral 480 1700 530 Output: Urine 2220 1200 400 Laboratory Last Values WBC 6.8 10^3/uL (3.5-10.8) 07/29/18 06:10 RBC 3.53 10^6 /uL (3.70-4.87) L 07/29/18 06:10 Hgb 11.0 g/dL (12.0-16.0) L 07/29/18 06:10 Hct 33 % (33-41) 07/29/18 06:10 MCV 95 fL (80-97) 07/29/18 06:10 MCH 31 pg (27-31) 07/29/18 06:10 MCHC 33 g/dL (31-36) 07/29/18 06:10 RDW 14 % (10.5-15) 07/29/18 06:10 Plt Count 238 10^3/uL (150-450) 07/29/18 06:10 MPV 7.7 fL (7.4-10.4) 07/29/18 06:10 Neut % (Auto) 55.3 % 07/26/18 22:55 Lymph % (Auto) 32.9 % 07/26/18 22:55 [place] % (Auto) 9.5 % 07/26/18 22:55 Eos % (Auto) 1.9 % 07/26/18 22:55 Baso % (Auto) 0.4 % 07/26/18 22:55 Absolute Neuts (auto) 4.2 10^3/ul (1.5-7.7) 07/26/18 22:55 Absolute Lymphs (auto) 2.5 10^3/ul (1.0-4.8) 07/26/18 22:55 Absolute Monos (auto) 0.7 10^3/ul (0-0.8) 07/26/18 22:55 Absolute Eos (auto) 0.1 10^3/ul (0-0.6) 07/26/18 22:55 Absolute Basos (auto) 0 10^3/ul (0-0.2) 07/26/18 22:55 Absolute Nucleated RBC 0 10^3/ul 07/26/18 22:55 Nucleated RBC % 0 07/26/18 22:55 INR (Anticoag Therapy) 1.42 (0.77-1.02) H 07/29/18 06:10 APTT 30.1 seconds (26.0-36.3) 07/27/18 05:41 Sodium 139 mmol/L (135-145) 07/29/18 06:10 Potassium 3.8 mmol/L (3.5-5.0) 07/29/18 06:10 Chloride 104 mmol/L (101-111) 07/29/18 06:10 Carbon Dioxide 30 mmol/L (22-32) 07/29/18 06:10 Anion Gap 5 mmol/L (2-11) 07/29/18 06:10 BUN 9 mg/dL (6-24) 07/29/18 06:10 Creatinine 0.57 mg/dL (0.51-0.95) 07/29/18 06:10 Est GFR ( Amer) 130.9 (>60) 07/29/18 06:10 Est GFR (Non-Af Amer) 108.2 (>60) 07/29/18 06:10 BUN/Creatinine Ratio 15.8 (8-20) 07/29/18 06:10 Glucose 81 mg/dL (70-100) 07/29/18 06:10 Calcium 8.9 mg/dL (8.6-10.3) 07/29/18 06:10 Total Bilirubin 0.20 mg/dL (0.2-1.0) 07/26/18 22:55 AST 15 U/L (13-39) 07/26/18 22:55 ALT 8 U/L (7-52) 07/26/18 22:55 Alkaline Phosphatase 54 U/L (34-104) 07/26/18 22:55 Total Protein 6.3 g/dL (6.4-8.9) L 07/26/18 22:55 Albumin 3.8 g/dL (3.2-5.2) 07/26/18 22:55 Globulin 2.5 g/dL (2-4) 07/26/18 22:55 Albumin/Globulin Ratio 1.5 (1-3) 07/26/18 22:55 Urine Color Yellow 07/27/18 10:58 Urine Appearance Cloudy 07/27/18 10:58 Urine pH 7.0 (5-9) 07/27/18 10:58 Ur Specific [place] 1.016 (1.010-1.030) 07/27/18 10:58 Urine Protein Negative (Negative) 07/27/18 10:58 Urine Ketones Negative (Negative) 07/27/18 10:58 Urine Blood Negative (Negative) 07/27/18 10:58 Urine Nitrate Negative (Negative) 07/27/18 10:58 Urine Bilirubin Negative (Negative) 07/27/18 10:58 Urine Urobilinogen Negative (Negative) 07/27/18 10:58 Ur Leukocyte Esterase Negative (Negative) 07/27/18 10:58 Urine Glucose Negative (Negative) 07/27/18 10:58 Blood Type O Positive 07/26/18 22:55 Antibody Screen Negative 07/26/18 22:55
--- NOTE | 2018-07-30 05:24 | DS ---
CC: Dr. Gooden; Dr. Carrillo * DISCHARGE SUMMARY: DATE OF ADMISSION: 07/26/18 DATE OF DISCHARGE: 07/29/18 PRIMARY CARE PROVIDER: Dr. Gooden. ATTENDING PHYSICIAN: Dr. Lindsay * (dictation by Keyur Barfield NP). CONSULTING PHYSICIAN: Dr. Carrillo. PRIMARY DIAGNOSES: 1. Closed right hip fracture. 2. Osteoporosis. SECONDARY DIAGNOSES: 1. Nicotine abuse. 2. Chronic obstructive pulmonary disease. CONSULTATION WHILE IN THE HOSPITAL: Dr. Carrillo, orthopedist. PROCEDURE WHILE IN THE HOSPITAL: Perc pinning right hip. STUDIES WHILE IN THE HOSPITAL: 1. Hip MRI: Impression: Acute traumatic occult right femoral neck and intertrochanteric fracture. 2. EKG: Impression: Sinus waqar. DISCHARGE HOME MEDICATIONS: New home medications: 1. Lovenox 40 mg subcu q.24 hours. 2. Soma 350 mg p.o. b.i.d. p.r.n., MDD 2. 3. Malakoff 5/325 one to two tabs p.o. q.6 hours p.r.n., MDD 8. 4. Warfarin 4 mg p.o. daily. Continued home medications: 1. Vitamin D3 1000 units p.o. daily. 2. Albuterol 2 puffs inhalation q.6 hours p.r.n. 3. Fosamax mg p.o. monthly. 4. Aspirin/caffeine 2 p.o. daily p.r.n. 5. Gabapentin 1200 mg p.o. b.i.d. Discontinued home medications: No home medications discontinued. Changed home medications: No home medications changed. HISTORY OF PRESENT ILLNESS/HOSPITAL COURSE: Mrs. Loera is a 62-year-old female who presented to the emergency room on 07/26/18 after a fall and right hip pain. While in the emergency department, the patient had imaging, which revealed acute traumatic occult right femoral neck and intertochanteric fractures. Given these findings, Dr. Carrillo, Orthopedic Surgery was consulted. The patient was admitted for pain control and for surgical intervention. While inpatient, the patient underwent perc pinning of right hip on 07/27/18. The patient has recovered well and has participated in PT well. The patient's pain is controlled with Soma and Malakoff. The patient was started on Coumadin and bridged with heparin for DVT prophylaxis. The patient is anxious for discharge and is stable for discharge home today. REVIEW OF SYSTEMS: General: The patient denies anorexia, weight loss, fever. Respiratory: No shortness of breath, cough, wheezing. Cardiac: No chest pain , palpitations, shortness of breath. GI: No nausea, vomiting, diarrhea, constipation. : No dysuria or increase in frequency. ENT: No sore throat or difficulty swallowing. Abdomen: No abdominal pain, diarrhea, nausea, vomiting. Musculoskeletal: The patient reports pain in right hip, tolerable with current pain medication regimen. The patient denies other muscle or joint pain. Skin: The patient denies lesions. Neuro: The patient denies dizziness, headache, visual changes. PHYSICAL EXAMINATION: General: Ms. Loera is a 62-year-old female, sitting in bed, appears in no acute distress, appears stated age. Vital Signs: Temp 97.6, HR 56, RR 17, O2 saturation 100% on room air, BP 154/84. HEENT: EOMs intact. PERRLA. Oral mucosa is moist without lesion. Posterior pharynx is clear. Neck: Supple. No lymphadenopathy. Cardiac: S1, S2 present. Regular rate and rhythm. No murmurs, rubs, or gallops. Respiratory: Lungs are clear to auscultation. Good aeration. No murmurs, rubs, or gallops. Abdomen: Soft , nontender. Bowel sounds x4. Extremities: No edema. No clubbing or cyanosis. Pedal pulses 2+ bilaterally. Musculoskeletal: The patient reports pain to right hip. Scant swelling. Dressing to right hip is clean, dry and intact. Good range of motion. Skin: Skin is clean, dry and intact. Neuro: No weakness or focal deficits noted. LABORATORY DATA: WBC 6.8, hemoglobin 11, hematocrit 33, platelets 238. INR 142. Sodium 139, potassium 3.8, chloride 104, carbon dioxide 30, BUN 9, creatinine 0.57. DISCHARGE PLAN/FOLLOWUP: 1. Status post perc pinning, right hip: The patient is doing well with physical and occupational therapy; therefore, does not require inpatient rehab. The patient will receive rehab as an outpatient. The patient is agreeable to this. The patient will follow up with Dr. Carrillo in 10 to 14 days in his office. Given the patient's INR of 1.42, she will be continued on Coumadin and Lovenox until INR is therapeutic. The patient was discharged with 4 mg Coumadin p.o. daily and 40 mg subcu Lovenox q.24 hours. The patient will have drawn INR on and results will be sent to Dr. Carrillo and the patient will be instructed on Coumadin and the Lovenox continuation. 2. Pain control: The patient reports pain is well controlled with Soma and Malakoff p.r.n. I have consulted the [facility] PNP reference number [id number]. Prescriptions for Soma and Malakoff were sent to the patient's pharmacy. I have also canceled prescription sent for oxycodone by Dr. Sherman from the emergency department. 3. Osteoporosis: The patient should follow up with her primary care regarding further evaluation. 4. COPD: The patient was not in an acute exacerbation, but should continue her home medications the same and refrain from smoking. 5. Followup: I have scheduled the patient to follow up with her primary care, Dr. Gooden, on 08/06/18. I asked to follow up with Dr. Carrillo. Dr. Carrillo's office will contact the patient regarding followup in 10 to 14 days. In addition, as mentioned above, Dr. Carrillo's office will be in contact with her regarding instructions for Coumadin and Lovenox given her INR results on 08/01/18. The patient instructed to call office if she does not hear from them on 08/01/18. 6. Education: The patient was educated on signs and symptoms of new or worsening condition, when to return to the emergency department. The patient and both stated understanding. This is a summarized report of a complex medical and hospital stay. For further details, please see the entire medical record. TIME SPENT: Approximately 45 minutes was spent on this discharge, greater than half the time was spent [id number] with the patient discussing discharge plans and instructions. KEYUR BARFIELD, DANIEL [id number]/[facility] #: [id number] ANNE
== END 2018-07-29 14:45 | disposition home or self-care (01) | DRG 308 ==
LOC: ED 16:27 → SSU 23:21
PROVIDERS: ADMIT Internal Medicine; ATTEND Student in an Organized Health Care Education/Training Program
PROC: 0QH634Z Insertion of Internal Fixation Device into Right Upper Femur, Percutaneous Approach (ICD-10-PCS; principal; 2018-07-27 12:00)
DX: S72.001A Fracture of unspecified part of neck of right femur, initial encounter for closed fracture (principal); M81.0 Age-related osteoporosis without current pathological fracture; J44.9 Chronic obstructive pulmonary disease, unspecified; S72.144A Nondisplaced intertrochanteric fracture of right femur, initial encounter for closed fracture; W01.0XXA Fall on same level from slipping, tripping and stumbling without subsequent striking against object, initial encounter; G62.9 Polyneuropathy, unspecified; F17.210 Nicotine dependence, cigarettes, uncomplicated; M25.451 Effusion, right hip; R00.0 Tachycardia, unspecified; G89.29 Other chronic pain; Z85.41 Personal history of malignant neoplasm of cervix uteri; Z88.6 Allergy status to analgesic agent; Z88.5 Allergy status to narcotic agent; Z98.1 Arthrodesis status; Y92.009 Unspecified place in unspecified non-institutional (private) residence as the place of occurrence of the external cause; Z90.710 Acquired absence of both cervix and uterus; Z82.5 Family history of asthma and other chronic lower respiratory diseases; Z82.49 Family history of ischemic heart disease and other diseases of the circulatory system; Z79.01 Long term (current) use of anticoagulants; Z79.82 Long term (current) use of aspirin
CPT/HCPCS: 36415; 72192; 80048; 80053; 81003; 85025; 85027; 85610; 85730; 86850; 86900; 86901; 93005; 99284; 99406; A9270-GY; C1713; J0690; J1240; J1644; J1650; J1885; J2270; J2405; J3010; J3490

== ENCOUNTER 2018-08-09 14:24 | Observation (INO) | payer BC ==
--- NOTE | 2018-08-09 14:43 | ED ---
Syncope/Near Syncope - HPI Summary HPI Summary: A 62 y/o F presents to ED s/p syncopal episode onset shortly [employer]. Patient was in the [facility] parking lot, she was here for a scheduled CT scan, when she got out of the car and felt dizzy and had brief LOC. It was witnessed by her . She did not fall to the ground, she did not hit her head. She went to imaging, where she was hypotensive, and they recommended she go to the ED for evaluation. She denies DOMINGUEZ, CP, SOB. Patient had surgery last week for a broken hip. She is on Coumadin. She sees Dr. Carrillo, ortho and Dr. Gooden, PCP. - History Of Current Complaint Chief Complaint: EDSyncope Time Seen by Provider: 08/09/18 14:34 Hx Obtained From: Patient, Family/Electrician Office Onset/Duration: Sudden Onset, Resolved Context: Witnessed, Loss Of Consciousness Activity At Onset: At Rest Associated Head Trauma: No Alleviating Factor(s): Spontaneous Resolution Associated Signs And Symptoms: Dizzy, Other - pos: hypotensive. neg: DOMINGUEZ, CP, SOB - Allergies/Home Medications Allergies/Adverse Reactions: Allergies Allergy/AdvReac Type Severity Reaction Status Date / Time codeine Allergy Anxiety Verified 08/09/18 14:31 tramadol Allergy Vomiting Verified 08/09/18 14:31 Home Medications: Home Medications Gabapentin 1,200 mg PO BID 08/09/18 [History Confirmed 08/09/18] PMH/Surg Hx/FS Hx/Imm Hx Previously Healthy: No Endocrine/Hematology History: Reports: Hx Anemia Denies: Hx Diabetes, Hx Thyroid Disease Cardiovascular History: Reports: Hx Hypertension Denies: Hx Pacemaker/ICD Respiratory History: Reports: Hx Asthma, Hx Chronic Bronchitis, Hx Chronic Obstructive Pulmonary Disease (COPD) GI History: Reports: Hx Hiatal Hernia Denies: Hx Gall Bladder Disease, Hx Gastroesophageal Reflux Disease Musculoskeletal History: Reports: Hx Arthritis, Hx Back Problems, Hx Osteoporosis - SHOWN IN HIPS NOT LUMBAR Sensory History: Reports: Hx Contacts or Glasses Denies: Hx Hearing Aid Opthamlomology History: Reports: Hx Contacts or Glasses Neurological History: Reports: Hx Nerve Disease - neuropathy, Hx Spinal Cord Injury - compression fx in t4-t5 Denies: Hx Dementia, Hx Developmental Delay, Hx Headaches, Hx Migraine, Hx Seizures, Hx Transient Ischemic Attacks (TIA) Psychiatric History: Denies: Hx Depression, Hx Panic Disorder - Cancer History Cancer Type, Location and Year: CERVICAL CA - Surgical History Surgery Procedure, Year, and Place: LUMBAR FUSION Hx Anesthesia Reactions: Yes - nauseous Infectious Disease History: No Infectious Disease History: Denies: Hx Hepatitis, Traveled Outside the [place] in Last 30 Days - Family History Known Family History: Negative: Diabetes - Social History Occupation: Retired Lives: With Family Alcohol Use: None Hx Substance Use: No Substance Use Type: Reports: None Hx Tobacco Use: Yes Smoking Status (MU): Current Every Day Smoker Review of Systems Positive: Other - pos: hypotensive. Negative: Chest Pain Negative: Shortness Of Breath Neurological: Other - pos: dizziness Positive: Syncope. Negative: Headache All Other Systems Reviewed And Are Negative: Yes Physical Exam - Summary Physical Exam Summary: VITAL SIGNS: Reviewed. GENERAL: Patient is a well-developed and nourished FEMALE who is lying comfortable in the stretcher. Patient is not in any acute respiratory distress. HEAD AND FACE: No signs of trauma. No ecchymosis, hematomas or skull depressions. No sinus tenderness. EYES: PERRLA, EOMI x 2, No injected conjunctiva, no nystagmus. EARS: Hearing grossly intact. Ear canals and tympanic membranes are within normal limits. MOUTH: Oropharynx within normal limits. NECK: Supple, trachea is midline, no adenopathy, no JVD, no carotid bruit, no c- spine tenderness, neck with full ROM. CHEST: Symmetric, no tenderness at palpation LUNGS: Clear to auscultation bilaterally. No wheezing or crackles. CVS: Regular rate and rhythm, S1 and S2 present, no murmurs or gallops appreciated. ABDOMEN: Soft, non-tender. No signs of distention. No rebound, no guarding, and no masses palpated. Bowel sounds are normal. EXTREMITIES: FROM in all major joints, no edema, no cyanosis or clubbing. NEURO: Alert and oriented x 3. No acute neurological deficits. Speech is normal and follows commands. SKIN: Dry and warm Triage Information Reviewed: Yes Vital Signs On Initial Exam: Initial Vitals Temp Pulse Resp BP Pulse Ox 98.6 F 73 18 95/73 97 08/09/18 14:26 08/09/18 14:26 08/09/18 14:26 08/09/18 14:26 08/09/18 14:26 Vital Signs Reviewed: Yes - [place] Coma Scale Best Eye Response: 4 - Spontaneous Best Motor Response: 6 - Obeys Commands Best Verbal Response: 5 - Oriented Coma Scale Total: 15 Diagnostics - Vital Signs Vital Signs Temp Pulse Resp BP Pulse Ox 08/09/18 14:26 98.6 F 73 18 95/73 97 - Laboratory Result Diagrams: 08/09/18 15:54 08/09/18 15:54 Lab Statement: Any lab studies that have been ordered have been reviewed, and results considered in the medical decision making process. - Radiology CXR Radiology Interpretation Completed By: Radiologist Summary of Radiographic Findings: IMPRESSION: HYPERINFLATION NO ACTIVE CARDIOPULMONARY DISEASE. ED provider has reviewed this report. - CT BRAIN CT CT Interpretation Completed By: Radiologist Summary of CT Findings: IMPRESSION: No acute intracranial pathology. ED provider has reviewed this report. - EKG 1449 Cardiac Rate: NL - 65 bpm EKG Rhythm: Sinus Rhythm EKG Comparison: No Significant Change - from EKG on 07/26/18. Summary of EKG Findings: No ST elevation. Re-Evaluation - Re-Evaluation 1 Re-Evaluation Time: 17:24 Change: Improved Comment: Discussing results with pt and plans to admit. Course/Dx Assessment/Plan: This patient is a 62-year-old female who presents to the emergency room with chief complaint of having a syncopal episode. Test results without any significant abnormality. Head CT impression: No acute intracranial pathology. Blood work without any significant abnormality except for WBCs of 10.9, INR 1.92, PTT of 37.7, glucose 116, lactic acid is 2.5, urinalysis is negative for UTI. The patient is hemodynamically stable. At this point I cannot rule out any type of arrhythmia for the syncopal episode. I discuss my physical exam, findings and test results with Dr. Alfonso from the hospitalist services and he agrees to admit patient to his services. Patient is hemodynamically stable alert and oriented x 3. - Diagnoses Provider Diagnoses: Syncope - Physician Notifications Discussed Care of Patient With: Katherine Colón - hospitalist Time Discussed With Above Provider: 17:20 Instructed by Provider To: Admit As Inpatient Discharge - Sign-Out/Discharge Documenting (check all that apply): Patient Departure - ADMIT Patient Received Moderate/Deep Sedation with Procedure: No - Discharge Plan Condition: Stable Disposition: ADMITTED TO [facility] Referrals: Raul Gooden DO [Primary Care Provider] - - Billing Disposition and Condition Condition: STABLE Disposition: Admitted to [facility] - Attestation Statements Document Initiated by Chelitaibe: Yes Documenting Scribe: Neptali Stephens Provider For Whom Scribe is Documenting (Include Credential): Dr. Bharathi Baker MD Scribe Attestation: Neptali Xavier scribed for Dr. Bharathi Baker MD on 08/09/18 at 1842. Scribe Documentation Reviewed: Yes Provider Attestation: The documentation as recorded by the Neptali gaming accurately reflects the service I personally performed and the decisions made by , Dr. Bharathi Baker MD Status of Scribe Document: Viewed
--- OUTSIDE RECORDS SUMMARY | 2018-08-09 15:13 | XMS REPORT | Continuity of Care Document ---
:1955 External Reference #:[id number] Author Name Kim Wagoner Care Team Providers Name Role Phone Raul Gooden D.O. Primary Care Physician Unavailable Payers Date Identification Numbers Payment Provider Subscriber Effective: Policy Number: [id number] [facility] Mick Loera III 2010 Group Number: [id number] [address] Group Name: [employer] [place] [address] PayID: [id number] Advance Directives Description No Information Available Problems Active Problems Provider Date Closed fracture of base of neck of femur Jay Carrillo M.D. Onset: 2018 Family History Date Family Member(s) Observation Comments General Diabetes General Stroke General Heart Disease Social History Type Date Description Comments Sex Unknown Lives With Spouse Occupation Retired ETOH Use Never used alcohol Tobacco Use Start: Unknown Patient is a current smoker, smokes every day Smoking Status Reviewed: 08/08/18 Patient is a current smoker, smokes every day Exercise Type/Frequency Exercises regularly Allergies, Adverse Reactions, Alerts Active Allergies Reaction Severity Comments Date Codeine 09/09/2012 Medications Active Medications SIG Qnty Indications Ordering Provider Date Hydrocodone-Acetamino Raul Gooden, phen D.O. 5-325mg Tablets Warfarin Sodium Take One Tablet By Unknown 4mg Mouth Every Day Tablets Gabapentin Raul Gooden, 600mg D.O. Tablets Vitamin D by mouth everyday Unknown 1000Unit Tablets Alendronate Sodium 1 tab by mouth Unknown 70mg every week. take Tablets in in the morning with 6-8 oz of water and remain upright for 30 minutes History Medications Oxycodone/Acetaminophen 1-2 tabs po 40tabs Aj Herron, 07/25/2011 - 5-325mg Tablets q 4 hrs prn M.D. Unknown pain Metoprolol Unknown - Unknown Itraconazole Unknown - Unknown Xanax Unknown - Unknown Hydrocodone Unknown - Unknown Immunizations Description No Information Available Vital Signs Date Vital Result Comment 08/08/2018 9:35am Height 64 inches 5'4" Weight 102.00 lb Heart Rate 62 /min BP Systolic 120 mmHg BP Diastolic 82 mmHg Body Temperature 97.5 F Pain Level 4 BMI (Body Mass Index) 17.5 kg/m2 Results Test Date Facility Test Result H/L Range Note Inr/Protime 08/01/2018 [facility] Inr 2.74 High 0.82-1.09 1 [address] [place] [address] [phone] 1 Standard intensity warfarin therapeutic range: 2.0-3.0 High intensity warfarin therapeutic range: 2.5-3.5 Procedures Date Code Description Status 07/27/2018 30410 Percutaneous TX Of Femoral FX Completed 03/11/2018 06961 Diffusing Capacity Completed 03/11/2018 91437 Plethysmography Determination Lung Volumes & Per Airway Completed Resist 03/11/2018 08125 Pulmonary Function><Bronchodil Completed 07/17/2011 47979 Closed TRTMT Clavicular Fracture Completed Encounters Type Date Location Provider Dx Diagnosis Office Visit 07/29/2018 [facility] M80.851A O[facility] osteopor w 9:18a Assoc,reggie Tejada NP current path Hospitalists fracture, right femur, init F17.200 Nicotine dependence, unspecified, uncomplicated J44.9 Chronic obstructive pulmonary disease, unspecified Office Visit 07/28/2018 9:18a [facility] Johanna Taveras2.91xA Unsp fracture Assoc,reggie N.P. of right Hospitalists femur, init for clos fx M80.851A Oth osteopor w current path fracture, right femur, init F17.200 Nicotine dependence, unspecified, uncomplicated J44.9 Chronic obstructive pulmonary disease, unspecified Office Visit 07/27/2018 9:17a [place] Johanna Edward2.91xA Unsp fracture Assoc,pc N.P. of right Hospitalists femur, init for clos fx M80.851A Oth osteopor w current path fracture, right femur, init J44.9 Chronic obstructive pulmonary disease, unspecified Plan of Treatment Future Appointment(s):08/21/2018 2:00 pm - Jay Carrillo M.D. at [facility].08/08/2018 - Lincoln Piedra M.D.S72.044A Nondisplaced fracture of base of neck of right femur, initiaFollow up:Follow up: [address] Carrillo
[2018-08-09 16:02] LABS: ABS Basophils 0.1 10^3/ul (0-0.2); ABS Eosinophils 0.1 10^3/ul (0-0.6); ABS Lymphocytes 1.9 10^3/ul (1.0-4.8); ABS Monocytes 0.8 10^3/ul (0-0.8); ABS Neutrophils 8.2 10^3/ul (1.5-7.7); Eosinophil % 0.8 %; Hematocrit 38 % (35-47); Hemoglobin 12.4 g/dL (12.0-16.0); Lymphocyte % 17.1 %; Mean Corpuscular HGB Conc 33 g/dL (31-36); Mean Corpuscular Hemoglobin 31 pg (27-31); Mean Corpuscular Volume 94 fL (80-97); Mean Platelet Volume 7.8 fL (7.4-10.4); Platelet Count 313 10^3/uL (150-450); Red Blood Count 3.97 10^6 /uL (3.70-4.87); Red Cell Distribution Width 14 % (10.5-15); White Blood Count 10.9 10^3/uL (3.5-10.8)
[2018-08-09 16:18] LABS: ALT 9 U/L (7-52); AST 13 U/L (13-39); Albumin 4.3 g/dL (3.2-5.2); Albumin/Globulin Ratio 1.5 (1-3); Alkaline Phosphatase 61 U/L (34-104); Anion Gap 7 mmol/L (2-11); BUN/Creatinine Ratio 15.2 (8-20); Blood Urea Nitrogen 10 mg/dL (6-24); CO2 Carbon Dioxide 26 mmol/L (22-32); Calcium 9.4 mg/dL (8.6-10.3); Chloride 103 mmol/L (101-111); Creatine Kinase 37 U/L (10-223); EGFR African American 110.5 (>60); EGFR Non-African American 91.4 (>60); Globulin 2.9 g/dL (2-4); Glucose 116 mg/dL (70-100); Potassium 3.9 mmol/L (3.5-5.0); Sodium 136 mmol/L (135-145); Total Protein 7.2 g/dL (6.4-8.9)
[2018-08-09 16:20] LABS: Activated Partial Thrombo Time 37.7 seconds (26.0-36.3); INR 1.92 (0.82-1.09)
[2018-08-09 16:23] LABS: BNP 19 pg/mL (<=100)
[2018-08-09 16:25] LABS: Alcohol < 10 mg/dL (<10)
[2018-08-09 16:40] LABS: TSH (Thyroid Stimulating Horm) 0.57 mcIU/mL (0.34-5.60)
[2018-08-09 17:20] LABS: Urine Appearance Clear; Urine Bilirubin Negative (Negative); Urine Blood Negative (Negative); Urine Color Straw; Urine Glucose Negative (Negative); Urine Ketones Negative (Negative); Urine Nitrite Negative (Negative); Urine Protein Negative (Negative); Urine Specific Gravity 1.006 (1.010-1.030); Urine Urobilinogen Negative (Negative)
[2018-08-09 17:49] LABS: Urine Benzodiazepine Screen None Detected (None Detect); Urine Opiates Screen Presumptive Positive (None Detect)
[2018-08-09] MEDS ORDERED: NS 0.9% 1000 ML** 1,000 ML IV ONE (17:58)
[2018-08-09] MEDS ORDERED: Ondansetron INJ* 2 MG/ML VIAL IV PRN (18:05)
[2018-08-09] MEDS ORDERED: Acetaminophen TAB* 325 MG PO PRN (18:05)
[2018-08-09] MEDS ORDERED: HYDROcodone/ACETAMIN 5-325 MG* 1 TAB PO PRN (18:09)
[2018-08-09] MEDS ORDERED: Albuterol HFA INHALER* 8 gm MDI INH PRN (18:09)
[2018-08-09] MEDS ORDERED: HYDROcodone/ACETAMIN 5-325 MG* 1 TAB PO ONE (18:10)
[2018-08-09] MEDS ORDERED: Nicotine Lozenge* mini 4 MG LOZNG.MINI MT PRN (18:22)
[2018-08-09] MEDS ORDERED: Iohexol 350* (CONTRAST) 500 ML MDV IV ONE (18:28)
[2018-08-09] MEDS ORDERED: Warfarin TAB(*) 4 MG PO SCH (20:00)
--- NOTE | 2018-08-09 20:00 | HP ---
CC: Dr. Gooden HISTORY AND PHYSICAL: ADDENDUM: PRIMARY CARE PROVIDER: Dr. Gooden. HISTORY OF PRESENT ILLNESS: The case was reviewed and discussed with RAYNE Liu. Ms. Loera is a 62-year-old female with a past medical history of COPD and tobacco abuse, who was admitted in July with a closed right hip fracture, who underwent a percutaneous pinning of the right hip with Dr. Carrillo on 07/27/18. She presents to the emergency room today after a syncopal episode. Her labs were reviewed. Although her syncopal episode was probably secondary to dehydration and she was n.p.o. to have a CT done as an outpatient, she does have risk factors for pulmonary embolism as her INR was subtherapeutic in the past and she has had recent trips back and forth from [place]. The plan is to rule out pulmonary embolism, give gentle IV hydration. In the emergency room, her laboratory tests were remarkable for lactic acid elevation at 3.5 and her U-tox is positive for cannabinoids and opiates. CT of the brain showed no acute intracranial pathology. Her chest x-ray showed hyperinflation, but no active cardiopulmonary disease. An EKG showed sinus rhythm at 65 beats per minute with no acute ischemic changes. She was hypotensive on arrival to the emergency room with initial blood pressure of 95/ 73, but those numbers have now improved. I am in agreement with the current management. [id number]/[facility] #: [id number] ANNE
--- NOTE | 2018-08-09 20:33 | HP ---
ATTENDING ADDENDUM NOW INCLUDED ON THIS REPORT CC: Dr. Raul Gooden * ADMISSION HISTORY AND PHYSICAL: DATE OF ADMISSION: 08/09/18 PRIMARY CARE PROVIDER: Dr. Raul Gooden. MY ATTENDING WHILE IN THE HOSPITAL: Dr. Mike Hamilton.* (DICTATED BY RAYNE CARRILLO) HISTORY OF PRESENT ILLNESS: Ms. Loera is a 62-year-old female with past medical history significant for COPD, osteoporosis, and recent mechanical fall with right-sided hip fracture who presents to the emergency department after syncope earlier on the day of presentation. The patient states that she had been feeling in her normal state of health, except for left-sided abdominal/hip pain, which was worse with standing, occasionally radiating down the inside of her thigh, was relieved by sitting down, was not worse with eating, is not reproducible with palpation. The patient has had numerous hernias and there was concern for worsening of hernia and the patient was sent for evaluation with a CT scan by her primary care doctor. The patient had to be n.p.o. for this study and ate some chips and drank a small amount of fluid this morning and then had not had anything to eat for the rest of the day. The patient was getting out of her truck to go to the scan, and as she stood up, she began to feel dizzy, so had to sit back down again and then passed out for approximately 45 seconds. The patient states that she did have prodromal dizziness, did not have any palpitations, no chest pain, no nausea or vomiting, no other pain. The patient did feel a hot flash associated with this and woke up without any drowsiness afterwards. The patient was able to say to her that she felt dizzy and did not pass out immediately. The patient has had increased urination at night, but no swelling in her legs. No orthopnea. No dyspnea on exertion. The patient had no calf tenderness. The patient has been taking frequent trips to [place], [address], several times in the last 2 months. The patient has not had any recent changes in her medications, except for Coumadin. The patient denies any chest pain, shortness of breath, fevers, chills, nausea or vomiting, except in association with taking her pain medication, which she received from her orthopedist. Due to concern for syncope , we were asked to evaluate the patient for admission to the hospital. PAST MEDICAL HISTORY: 1. Emphysema. 2. Osteoporosis. 3. Recent mechanical fall with hip fracture. 4. Cervical cancer, status post hysterectomy in 1989. 5. Compression fracture in T4 and T5. 6. Histoplasmosis, status post treatment. 7. Neuropathy in her left leg. PAST SURGICAL HISTORY: 1. Five to six hernia repairs, right hip. 2. Percutaneous pinning in July 2018. 3. Lumbar and sacral fusion in 2012. 4. Hysterectomy in 1989. 5. Appendectomy. 6. . 7. Bone removal from her foot for a toe deformity. MEDICATIONS: 1. Fosamax 10 mg p.o. weekly. 2. Gabapentin 1200 mg p.o. b.i.d. 3. Coumadin 4 mg p.o. daily, increase based on INR readings. 4. Vitamin D 1000 units p.o. daily. 5. Eckert 5/325 one to two tabs p.o. q.4 hours as needed. ALLERGIES: TRAMADOL, CODEINE. FAMILY HISTORY: The patient's mother is still alive, has heart failure and atrial fibrillation. The patient's father's history is unknown. The patient's maternal grandmother of a massive heart attack. The patient has an uncle who had an [place] and prostate cancer. The patient's brother has epilepsy. SOCIAL HISTORY: The patient smoked half a pack a day for the last 40 years. The patient denies alcohol abuse. The patient denies illicit drug use. 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 The patient is and has 5 children. REVIEW OF SYSTEMS: A 14-point review of systems was reviewed and is negative, except as above in the HPI. PHYSICAL EXAMINATION GENERAL: The patient is a 62-year-old female who appears stated age, sitting comfortably in bed, in no acute distress. VITAL SIGNS: Temperature 98.6, pulse rate 72, respiratory rate 14, oxygen saturation 95% on room air, blood pressure 122/54. HEENT: Head: Normocephalic, atraumatic. Sclerae anicteric. No conjunctival injection. Nasal mucosa moist. Oral mucosa moist. No pharyngeal erythema, discharge, or exudate. NECK: Supple, nontender. No lymphadenopathy. No carotid bruit auscultated. No JVD. RESPIRATORY: Clear to auscultation bilaterally. No wheezes, rales, or rhonchi. Good air exchange bilaterally. CARDIAC: Regular rate and rhythm. No clicks, murmurs, gallops, or rubs. Pulses 2+ in the bilateral dorsalis pedis, posterior tibial and radial areas. ABDOMEN: Soft, nontender, nondistended. Bowel sounds present in all 4 quadrants. No hepatosplenomegaly. No abdominal bruits auscultated. No hepatojugular reflux. GENITOURINARY: No suprapubic or CVA tenderness. NEURO: Cranial nerves II through XII intact. No focal deficits. Alert and oriented x3. PSYCHIATRIC: Pleasant and cooperative. SKIN: Clean, dry, intact. No rash. DIAGNOSTIC STUDIES/LAB DATA: Laboratory Data: White blood cell count 10.9, hemoglobin 12.4, platelet count 313. INR 1.92, aPTT is 37.7. Sodium 136, potassium 3.9, chloride 103, carbon dioxide 26, anion gap 7, BUN 10, creatinine 0.66, glucose 116, lactic acid 2.5, calcium 9.4, magnesium 2.0. Bilirubin 0.2, AST 13, ALT 9, alkaline phosphatase 61. Ammonia 51. Creatine kinase is 37. Troponin I 0.00, BNP 19. Protein 7.2, albumin 4.3, globulin 2.9. Urine clear, low specific gravity. Urine tox screen shows positive opiates, positive cannabinoids. Alcohol screen is negative. Studies: Electrocardiogram shows normal sinus rhythm, normal axis, no ST segment depression or elevation, no hypertrophy or enlargement, rate of 65, QTc of 465. Compared to previous exam from 07/26/18, there are no significant changes. Brain CT read as no acute intracranial process. Chest x-ray read as hyperinflation, no active cardiopulmonary disease. ASSESSMENT AND PLAN: Impression: The patient is a 62-year-old female with past medical history significant for COPD, osteoporosis, recent hip fracture who presents to the emergency department with syncope, admitted for further evaluation to rule out cardiac causes. 1. Syncope. The patient's syncope has findings consistent with a neurocardiogenic syncope including prodromal symptoms, lack of palpitations or chest pain, occurring upon standing, occurring likely in the setting of dehydration. The patient does have risk factors for DVT and pulmonary embolism. The patient will have a CT of the chest to rule out pulmonary embolism and the cause of her symptoms. The patient's elevated lactic acid is likely due to dehydration; however, it may be related to hyperperfusion from CT. The patient has no signs of any sort of infection. The patient was given 1 L fluid bolus. The patient is encouraged to increase fluids by mouth. The patient has been drinking a large amount. The patient did not eat any food bolus. The patient does not have an underlying concern for infection to meet sepsis criteria. The patient has been subtherapeutic on her warfarin. 2. Osteoporosis. Continue Fosamax at home. 3. Left hip pain. The patient is going to have a CT scan to evaluate this left hip/left lower quadrant pain. This has been ordered in the emergency department and will be performed in conjunction with the CT of the chest. 4. Chronic obstructive pulmonary disease. The patient is in current exacerbation. Continue inhaler as needed. 5. Recent hip fracture. The patient has been subtherapeutic on her Coumadin, requiring increases in her doses and putting her at risk for DVT. The patient will be continued on 4 mg at this time given her poor oral intake today and will have her INR checked daily while in the hospital. 6. Polyuria. The patient has polyuria of unknown cause. We will check hemoglobin A1c to rule out diabetes as she does have a high fasting glucose at this time. 7. DVT prophylaxis. The patient is on Coumadin. 8. FEN. The patient will have fluids as above and a regular, unrestricted diet after her studies. 9. Disposition. The patient will be admitted to observation. TIME SPENT: Approximately 60 minutes were spent on the admission of this patient, 30 of which were spent [id number] with the patient, obtaining history and physical and discussing treatment plan. This plan has been discussed with my attending, Dr. Mike Hamilton; she is in agreement. RAYNE CARRILLO ADDENDUM: PRIMARY CARE PROVIDER: Dr. Gooden. HISTORY OF PRESENT ILLNESS: The case was reviewed and discussed with RAYNE Carrillo. Ms. Loera is a 62-year-old female with a past medical history of COPD and tobacco abuse, who was admitted in July with a closed right hip fracture, who underwent a percutaneous pinning of the right hip with Dr. Carrillo on 07/27/18. She presents to the emergency room today after a syncopal episode. Her labs were reviewed. Although her syncopal episode was probably secondary to dehydration and she was n.p.o. to have a CT done as an outpatient, she does have risk factors for pulmonary embolism as her INR was subtherapeutic in the past and she has had recent trips back and forth from [place]. The plan is to rule out pulmonary embolism, give gentle IV hydration. In the emergency room, her laboratory tests were remarkable for lactic acid elevation at 3.5 and her U-tox is positive for cannabinoids and opiates. CT of the brain showed no acute intracranial pathology. Her chest x-ray showed hyperinflation, but no active cardiopulmonary disease. An EKG showed sinus rhythm at 65 beats per minute with no acute ischemic changes. She was hypotensive on arrival to the emergency room with initial blood pressure of 95/ 73, but those numbers have now improved. I am in agreement with the current management. MIKE Hamilton MD [id number]/[facility] #: [id number]/[facility] #: [id number] ANNE
[2018-08-09] MEDS: Gabapentin CAP(*) 400 MG PO SCH (21:36)
[2018-08-09] MEDS: Carisoprodol TAB* 350 MG PO SCH (21:37)
[2018-08-10 06:46] LABS: ABS Eosinophils 0.1 10^3/ul (0-0.6); ABS Lymphocytes 1.7 10^3/ul (1.0-4.8); ABS Monocytes 0.6 10^3/ul (0-0.8); ABS Neutrophils 3.9 10^3/ul (1.5-7.7); Eosinophil % 1.9 %; Hematocrit 33 % (35-47); Hemoglobin 11.1 g/dL (12.0-16.0); Lymphocyte % 27.1 %; Mean Corpuscular HGB Conc 34 g/dL (31-36); Mean Corpuscular Hemoglobin 31 pg (27-31); Mean Corpuscular Volume 93 fL (80-97); Mean Platelet Volume 7.7 fL (7.4-10.4); Platelet Count 292 10^3/uL (150-450); Red Blood Count 3.57 10^6 /uL (3.70-4.87); Red Cell Distribution Width 14 % (10.5-15); White Blood Count 6.4 10^3/uL (3.5-10.8)
[2018-08-10 06:52] LABS: INR 2.96 (0.82-1.09)
[2018-08-10 07:04] LABS: BUN/Creatinine Ratio 16.7 (8-20); EGFR African American 123.4 (>60); HDL Cholesterol 30.7 mg/dL; Magnesium 2.1 mg/dL (1.9-2.7); Potassium 4.1 mmol/L (3.5-5.0)
[2018-08-10] MEDS: Carisoprodol TAB* 350 MG PO SCH (07:55)
[2018-08-10] MEDS: Gabapentin CAP(*) 400 MG PO SCH (07:55)
[2018-08-10 09:30] VITALS: BP 126/58
--- NOTE | 2018-08-10 15:32 | DS ---
CC: Dr. Raul Gooden * DISCHARGE SUMMARY: DATE OF ADMISSION: 08/09/18 DATE OF DISCHARGE: 08/10/18 PRIMARY CARE PROVIDER: Dr. Raul Gooden. ATTENDING PHYSICIAN: Bhakti Tolbert MD * (dictated by Ara Riggins NP). PRIMARY DIAGNOSES: 1. Syncope secondary to hypovolemia. 2. Prediabetes. SECONDARY DIAGNOSES: 1. Chronic obstructive pulmonary disease. 2. Recent right hip fracture, status post repair. STUDIES WHILE IN THE HOSPITAL: 1. EKG on 08/09/18 shows normal sinus rhythm with a rate of 65, QTc 465, Q waves present in inferior leads. No significant change since previous EKG on file. 2. Brain CT on 08/09/18 reads as no acute intracranial pathology. 3. Chest x-ray on 08/09/18 reads as hyperinflation. No active cardiopulmonary disease. 4. Chest, abdomen and pelvis CTA on 08/09/18 reads as no pulmonary emboli. No additional findings, do correlate with the patient's symptomatology. Mild emphysema. 5. EKG on 08/10/18 shows normal sinus rhythm with a rate of 65, QTc 456. No significant changes on the previous EKG. HISTORY OF PRESENT ILLNESS AND HOSPITAL COURSE: Ms. Loera is a 62-year-old female with past medical history of COPD, osteoporosis, and a recent right hip fracture, status post repair, who presented to the emergency room on 08/09/18 with complaints of syncope, please see the history and physical by RAYNE Liu for a complete summary with the events leading up to this hospitalization. In short, the patient has numerous hernias and was coming to the hospital for a CT scan. She had been n.p.o. for this study. When getting out of her vehicle in the parking lot, she began to feel dizzy and so sat back down. According to her , she lost consciousness for approximately 45 seconds. In the emergency room, she had imaging as noted above. She was noted to have a slightly subtherapeutic INR of 1.92 and she did have a negative troponin and a normal creatinine kinase and BNP. She was noted to have an elevated lactic acid of 3.5. There was no evidence of infection and his lactic acid was felt to be elevated secondary to hypovolemia and not any sort of infectious process. Because of a concern for syncope, she was admitted by the Hospitalist service. The patient had an uneventful night and was monitored on telemetry with no evidence of arrhythmias. She has not had any further episodes of dizziness or syncope. She had a repeat EKG this morning without any changes and she had two additional troponins which were flat at 0.00. The lactic acid did normalize and as of today, her INR is therapeutic at 2.96. We note that the patient's toxicology screen on admission was positive for cannabinoids. The patient feels well this morning and was anxious to return home. She did have orthostatic vital signs, which were negative. She was given a total of 1 L IV fluids. The patient did have a hemoglobin A1c of 6.2% and she had a lipid panel , which showed triglycerides of 95, total cholesterol of 160, LDL of 110, HDL of 30. On exam, there are no focal neurological deficits, heart has a regular rate and rhythm without any murmurs, rubs or gallops. Lung sounds are diminished, but clear on room air. Ms. Loera is stable for discharge today. Vital signs are as below: Temp 98.0, heart rate 66, respiratory rate 20, oxygen saturation 98% of room air, blood pressure 126/58. DISCHARGE MEDICATIONS: Continued medications: 1. Albuterol MDI 2 puffs q.6 hours p.r.n. shortness of breath, wheezing. 2. Fosamax 10 mg p.o. weekly. 3. Soma 350 p.o. b.i.d. 4. Cholecalciferol 1000 units p.o. daily. 5. Gabapentin 1200 units p.o. b.i.d. 6. Hydrocodone/acetaminophen 5/325 1 to 2 tabs p.o. q.6 hours p.r.n. pain. 7. Warfarin 4 mg p.o. daily. DISCHARGE PLAN: Ms. Loera will be discharged to home. Activity will be as tolerated. Diet will be regular as tolerated, though I have discussed at length with the patient her new diagnosis of prediabetes and how she can manage this with diet. I have recommended an ADA diet for her and I did give her a printout outlining diet recommendation. Medications are noted above. The patient can continue her usual medications and I have not made any changes. I will note that the patient's LDL was slightly elevated, though according to ASCVD risk algorithm, no statin is recommended. I have advised her that she should stay hydrated and need caution when standing to prevent any further episodes of syncope. The patient should follow up with her primary care provider in 4 to 7 days and it will need to be determined if she should reattempt the CT she was initially coming to the hospital for. She should return to the emergency room or nearest hospital for any worsening of symptoms, shortness of breath, lightheadedness, dizziness, chest discomfort, high fevers, chills, night sweats, loss of consciousness or any other worrisome symptoms DISCHARGE CONDITION: Stable DISCHARGE DISPOSITION: Home. This is a summarized report of a complex medical history and hospital stay. For further details, please see the entire medical record. TIME SPENT: Approximately 40 minutes was spent on this discharge. ARA RIGGINS NP [id number]/[facility] #: [id number] ANNE
== END 2018-08-10 10:18 | disposition home or self-care (01) ==
LOC: ED 14:24 → MEDTELE 18:05
PROVIDERS: ADMIT Internal Medicine; ATTEND Internal Medicine
DX: R55 Syncope and collapse (principal); E86.1 Hypovolemia; R73.03 Prediabetes; S72.001D Fracture of unspecified part of neck of right femur, subsequent encounter for closed fracture with routine healing; F17.210 Nicotine dependence, cigarettes, uncomplicated; J43.9 Emphysema, unspecified; X58.XXXD Exposure to other specified factors, subsequent encounter; M81.0 Age-related osteoporosis without current pathological fracture; Z85.41 Personal history of malignant neoplasm of cervix uteri; G62.9 Polyneuropathy, unspecified; Z79.01 Long term (current) use of anticoagulants; R42 Dizziness and giddiness; I10 Essential (primary) hypertension; Z79.899 Other long term (current) drug therapy
CPT/HCPCS: 36415; 70450; 71046; 71275; 74177; 80048; 80053; 80061; 80307; 80320; 81003; 82140; 82550; 83036; 83605; 83735; 83880; 84443; 84484; 85025; 85610; 85730; 93005; 96374; 96375; 99285; A9270-GY; G0378; G0480; J2405; Q9967